=== PATIENT | female | born 1985 | race Hispanic/Latino ===

== ENCOUNTER 2023-03-20 13:28 | Outpatient (CLI) | payer MEDICAID, SELFPAY ==
[2023-03-20 14:58] LABS: Appearance Urine Clear (Clear); Bacteria Urine 1+ /hpf; Bilirubin Urine Negative (Negative); Blood Urine Negative (Negative); Color Urine Yellow (Yellow); Glucose Urine UA Negative (Negative); Ketones Urine Trace mg/dL (Negative); Leukocyte Esterase Ur 2+ LEU/UL (Negative); Need Manual Microscopic Reviewed; Nitrate Urine Negative (Negative); Non Pathogenic Casts 0-2; Protein Urine Negative (Negative); Specific Grav Ur 1.022 (1.001-1.035); Squamous Epithelial Cell Urine Moderate /hpf (Few); Urobilinogen Urine 0.2 mg/dL (<2.0); WBC Urine 0-5 /hpf; pH Urine 6.5 (5.0-9.0)
[2023-03-20 15:04] LABS: Add Urine Microscopic? YES
== END 2023-03-20 13:29 | disposition home or self-care (01) ==
DX: Z34.92 Encounter for supervision of normal pregnancy, unspecified, second trimester (principal); R39.89 Other symptoms and signs involving the genitourinary system; Z3A.25 25 weeks gestation of pregnancy
CPT/HCPCS: 81001